=== PATIENT | female | born 1970 | race Caucasian/White ===

== ENCOUNTER 2017-12-14 14:08 | Emergency (ER) | payer BC, OTHER ==
[2017-12-14 14:36] VITALS: BP 151/79; PULSE 103; RESP 20; TEMP 98
[2017-12-14] MEDS ORDERED: ONDANSETRON 4 MG/2 ML VIAL IVP STA (15:00)
[2017-12-14] MEDS ORDERED: SODIUM CHLORIDE 0.9% 1,000 ML IV STA (15:00)
[2017-12-14] MEDS ORDERED: MORPHINE SULFATE 4 MG/ML SYRINGE IV STA (15:00)
--- NOTE | 2017-12-14 15:07 | ED ---
General Adult HPI - General Chief complaint: Back Pain/Injury Stated complaint: Left Side/Back Pain Time Seen by Provider: 12/14/17 14:49 Source: patient, RN notes reviewed Mode of arrival: wheelchair Limitations: no limitations - History of Present Illness Initial comments: Patient 47-year-old female presented to the emergency room today with a chief complaint of left sided flank pain that started approximately 45 minutes ago. Patient does admit that it feels similar to kidney stone that she's had once in the past. Patient does admit to increased nausea and pain. States it's coming in waves. Denies any other complaints or symptoms currently. Patient denies any recent fever, chills, shortness of breath, chest pain, back pain, abdominal pain, nausea or vomiting, numbness or tingling, headaches or visual changes, or any other complaints. - Related Data Home Medications Medication Instructions Recorded Confirmed Amitriptyline HCl [Elavil] 07/23/14 07/23/14 DULoxetine HCL [Cymbalta] 07/23/14 07/23/14 Levothyroxine Sodium [Synthroid] 07/23/14 07/23/14 Metoprolol Tartrate [Lopressor] 75 mg PO 07/23/14 07/23/14 Previous Rx's Medication Instructions Recorded Naproxen [Naprosyn] 500 mg PO Q12HR #20 tab 07/23/14 Orphenadrine [Norflex] 100 mg PO Q12H #10 tablet.er 07/23/14 Hydrocodone/Acetaminophen [[place] 1 each PO Q6HR PRN #12 tab 12/14/17 5-325] Ibuprofen [Motrin] 600 mg PO Q6HR PRN #40 day 12/14/17 Ondansetron Odt [Zofran ODT] 4 mg PO Q8HR PRN #20 tab 12/14/17 Tamsulosin [Flomax] 0.4 mg PO DAILY #10 cap 12/14/17 Allergies Allergy/AdvReac Type Severity Reaction Status Date / Time fluconazole [From Diflucan] Allergy Anaphylaxis Verified 12/14/17 14:36 Review of Systems ROS Statement: Those systems with pertinent positive or pertinent negative responses have been documented in the HPI. ROS Other: All systems not noted in ROS Statement are negative. Past Medical History Past Medical History: Fibromyalgia, Hypertension, Thyroid Disorder Additional Past Medical History / Comment(s): kidney stones History of Any Multi-Drug Resistant Organisms: None Reported Past Surgical History: Cholecystectomy, Hysterectomy Past Psychological History: No Psychological Hx Reported Smoking Status: Never smoker Past Alcohol Use History: None Reported Past Drug Use History: None Reported General Exam - General Exam Comments Initial Comments: General: The patient is awake and alert, in no distress, and does not appear acutely ill. Eye: There is normal conjunctiva bilaterally. No signs of icterus. Ears, nose, mouth and throat: There are moist mucous membranes and no oral lesions. Neck: The neck is supple, there is no tenderness or JVD. Cardiovascular: There is a regular rate and rhythm. No murmur, rub or gallop is appreciated. Respiratory: Lungs are clear to auscultation, respirations are non-labored, breath sounds are equal. No wheezes, stridor, rales, or rhonchi. Gastrointestinal: Soft, non-distended, non-tender abdomen without masses or organomegaly noted. There is no rebound or guarding present. No CVA tenderness. Musculoskeletal: Normal ROM, no tenderness. Sensation intact. Strength 5/5. Pulses equal bilaterally 2+. Neurological: A&O x 3. CN II-XII intact, There are no obvious motor or sensory deficits. Coordination appears grossly intact. Speech is normal. Skin: Skin is warm and dry and no rashes or lesions are noted. Psychiatric: Cooperative, appropriate mood & affect, normal judgment. Limitations: no limitations Course Vital Signs 12/14/17 14:35 Temperature 98.0 F Pulse Rate 103 H Respiratory 20 Rate Blood Pressure 151/79 O2 Sat by Pulse 98 Oximetry Medical Decision Making - Medical Decision Making Patient's EKG the abdomen and pelvis that showed 3 mm obstructing stone the left. Patient labs been reviewed urinalysis shows no sign of infection. Patient was started Flomax, ibuprofen, Bracey, and Zofran for nausea. Patient did have an opiate start talking form completed. Patient is advised follow-up with the urologist over the next 2 days. - Lab Data Result diagrams: 12/14/17 15:24 12/14/17 15:24 Lab Results 12/14/17 12/14/17 12/14/17 Range/Units 15:24 15:24 15:24 WBC 7.7 (3.8-10.6) k/uL RBC 4.47 (3.80-5.40) m/uL Hgb 13.5 (11.4-16.0) gm/dL Hct 40.1 (34.0-46.0) % MCV 89.7 (80.0-100.0) fL MCH 30.3 (25.0-35.0) pg MCHC 33.7 (31.0-37.0) g/dL RDW 13.7 (11.5-15.5) % Plt Count 317 (150-450) k/uL Neutrophils % 76 % Lymphocytes % 18 % Monocytes % 4 % Eosinophils % 1 % Basophils % 0 % Neutrophils # 5.9 (1.3-7.7) k/uL Lymphocytes # 1.4 (1.0-4.8) k/uL Monocytes # 0.3 (0-1.0) k/uL Eosinophils # 0.1 (0-0.7) k/uL Basophils # 0.0 (0-0.2) k/uL Sodium 141 (137-145) mmol/L Potassium 4.0 (3.5-5.1) mmol/L Chloride 101 (98-107) mmol/L Carbon Dioxide 28 (22-30) mmol/L Anion Gap 12 mmol/L BUN 12 (7-17) mg/dL Creatinine 0.69 (0.52-1.04) mg/dL Est GFR (CKD-EPI)AfAm >90 (>60 ml/min/1.73 sqM) Est GFR (CKD-EPI)NonAf >90 (>60 ml/min/1.73 sqM) Glucose 103 H (74-99) mg/dL Calcium 9.7 (8.4-10.2) mg/dL Total Bilirubin 0.4 (0.2-1.3) mg/dL AST 18 (14-36) U/L ALT 20 (9-52) U/L Alkaline Phosphatase 84 (38-126) U/L Total Protein 7.6 (6.3-8.2) g/dL Albumin 4.2 (3.5-5.0) g/dL Amylase 82 (30-110) U/L Lipase 42 (23-300) U/L Urine Color Urine Appearance (Clear) Urine pH (5.0-8.0) Ur Specific [place] (1.001-1.035) Urine Protein (Negative) Urine Glucose (UA) (Negative) Urine Ketones (Negative) Urine Blood (Negative) Urine Nitrite (Negative) Urine Bilirubin (Negative) Urine Urobilinogen (<2.0) mg/dL Ur Leukocyte Esterase (Negative) Urine RBC (0-5) /hpf Urine WBC (0-5) /hpf Ur Squamous Epith Cells (0-4) /hpf Urine Mucus (None) /hpf Urine HCG, Qual Not Detected (Not Detectd) 12/14/17 Range/Units 15:24 WBC (3.8-10.6) k/uL RBC (3.80-5.40) m/uL Hgb (11.4-16.0) gm/dL Hct (34.0-46.0) % MCV (80.0-100.0) fL MCH (25.0-35.0) pg MCHC (31.0-37.0) g/dL RDW (11.5-15.5) % Plt Count (150-450) k/uL Neutrophils % % Lymphocytes % % Monocytes % % Eosinophils % % Basophils % % Neutrophils # (1.3-7.7) k/uL Lymphocytes # (1.0-4.8) k/uL Monocytes # (0-1.0) k/uL Eosinophils # (0-0.7) k/uL Basophils # (0-0.2) k/uL Sodium (137-145) mmol/L Potassium (3.5-5.1) mmol/L Chloride (98-107) mmol/L Carbon Dioxide (22-30) mmol/L Anion Gap mmol/L BUN (7-17) mg/dL Creatinine (0.52-1.04) mg/dL Est GFR (CKD-EPI)AfAm (>60 ml/min/1.73 sqM) Est GFR (CKD-EPI)NonAf (>60 ml/min/1.73 sqM) Glucose (74-99) mg/dL Calcium (8.4-10.2) mg/dL Total Bilirubin (0.2-1.3) mg/dL AST (14-36) U/L ALT (9-52) U/L Alkaline Phosphatase (38-126) U/L Total Protein (6.3-8.2) g/dL Albumin (3.5-5.0) g/dL Amylase (30-110) U/L Lipase (23-300) U/L Urine Color Light Red Urine Appearance Cloudy H (Clear) Urine pH 7.0 (5.0-8.0) Ur Specific [place] 1.017 (1.001-1.035) Urine Protein 1+ H (Negative) Urine Glucose (UA) Negative (Negative) Urine Ketones Negative (Negative) Urine Blood Large H (Negative) Urine Nitrite Negative (Negative) Urine Bilirubin Negative (Negative) Urine Urobilinogen <2.0 (<2.0) mg/dL Ur Leukocyte Esterase Negative (Negative) Urine RBC >182 H (0-5) /hpf Urine WBC 2 (0-5) /hpf Ur Squamous Epith Cells 5 H (0-4) /hpf Urine Mucus Many H (None) /hpf Urine HCG, Qual (Not Detectd) Disposition Clinical Impression: Kidney stone Disposition: HOME SELF-CARE Condition: Good Instructions: Kidney Stones (ED) Additional Instructions: Please use medication as discussed. Please follow-up with urologist/family doctor in the next 2 days of symptoms have not improved. Please return to emergency room if the symptoms increase or worsen or for any other concerns. Prescriptions: Hydrocodone/Acetaminophen [[place] 5-325] 1 each PO Q6HR PRN #12 tab PRN Reason: Pain Ibuprofen [Motrin] 600 mg PO Q6HR PRN #40 day PRN Reason: Pain Ondansetron Odt [Zofran ODT] 4 mg PO Q8HR PRN #20 tab PRN Reason: Nausea Tamsulosin [Flomax] 0.4 mg PO DAILY #10 cap Is patient prescribed a controlled substance at d/c from ED?: No Referrals: Agueda Moon MD [Primary Care Provider] - 1-2 days Anthony Mullins MD [STAFF PHYSICIAN] - 1-2 days Time of Disposition: 17:16
[2017-12-14] MEDS: SODIUM CHLORIDE 0.9% 1,000 ML IV STA (15:22)
[2017-12-14 15:42] LABS: Basophils % (A) 0 %; Eosinophils # (A) 0.1 k/uL (0-0.7); Eosinophils % (A) 1 %; HCT 40.1 % (34.0-46.0); HGB 13.5 gm/dL (11.4-16.0); Lymphocytes # (A) 1.4 k/uL (1.0-4.8); Lymphocytes % (A) 18 %; MCH 30.3 pg (25.0-35.0); MCHC 33.7 g/dL (31.0-37.0); MCV 89.7 fL (80.0-100.0); Mean Platelet Volume 6.2; Monocytes # (A) 0.3 k/uL (0-1.0); Monocytes % (A) 4 %; Neutrophils # (A) 5.9 k/uL (1.3-7.7); Neutrophils % (A) 76 %; Platelet Count 317 k/uL (150-450); RBC 4.47 m/uL (3.80-5.40); RDW 13.7 % (11.5-15.5); WBC 7.7 k/uL (3.8-10.6)
[2017-12-14 15:50] LABS: ALT 20 U/L (9-52); AST 18 U/L (14-36); Albumin 4.2 g/dL (3.5-5.0); Alkaline Phosphatase 84 U/L (38-126); Amylase 82 U/L (30-110); Anion Gap 12 mmol/L; Appearance,Urine Cloudy (Clear); Bilirubin,Urine Negative (Negative); Blood Urea Nitrogen 12 mg/dL (7-17); Blood,Urine Large (Negative); Calcium 9.7 mg/dL (8.4-10.2); Carbon Dioxide 28 mmol/L (22-30); Chloride 101 mmol/L (98-107); Color,Urine Light Red; Glucose 103 mg/dL (74-99); Glucose,Urine (UA) Negative (Negative); Ketones,Urine Negative (Negative); Leukocyte Esterase,Urine Negative (Negative); Lipase 42 U/L (23-300); Mucus,Urine Many /hpf; Nitrite,Urine Negative (Negative); Protein,Urine 1+ (Negative); RBC,Urine >182 /hpf (0-5); Sodium 141 mmol/L (137-145); Specific Gravity,Urine 1.017 (1.001-1.035); Squamous Epithelial Cell,Urine 5 /hpf (0-4); Total Bilirubin 0.4 mg/dL (0.2-1.3); Total Protein 7.6 g/dL (6.3-8.2); Urobilinogen,Urine <2.0 mg/dL (<2.0); WBC,Urine 2 /hpf (0-5)
--- NOTE | 2017-12-14 16:00 | XR ---
EXAMINATION TYPE: XR KUB DATE OF EXAM: 12/14/2017 3:48 PM CLINICAL HISTORY: Left-sided abdominal pain with history of nephrolithiasis. TECHNIQUE: Single supine KUB image of the abdomen is obtained. COMPARISON: 05/15/2009. FINDINGS: Scattered gas is seen in non-distended small bowel loops. Gas and fecal material is seen in non-distended colon. There is no visceromegaly, gross evidence of pneumoperitoneum, or abnormal calc ification appreciated. The lung bases are clear and the osseous structures are intact. Cholecystectom y clips are noted within the right upper quadrant. IMPRESSION: No radiopaque calculi are appreciated. Small phleboliths are present within the pelvis un changed from 2009. Nonobstructive bowel gas pattern.
--- NOTE | 2017-12-14 16:46 | CT ---
EXAMINATION TYPE: CT abdomen pelvis wo con DATE OF EXAM: 12/14/2017 COMPARISON: None HISTORY: Left sided flank pain CT DLP: 619.9 mGycm Automated exposure control for dose reduction was used. TECHNIQUE: Helical acquisition of images was performed from the lung bases through the pelvis. FINDINGS: LUNG BASES: No significant abnormality is appreciated. LIVER/GB: Unremarkable unenhanced morphology. The bladder is surgically absent. PANCREAS: No significant abnormality is seen. SPLEEN: No splenomegaly. ADRENALS: No nodularity or thickening. KIDNEYS: There is a 3 mm obstructing left proximal ureteral calculus creating a normal left hydrouret eronephrosis. No additional renal calculi are seen within either kidney. No right-sided hydronephrosi s. No perinephric fluid collection. FREE AIR: No free air is visualized ADENOPATHY: No greater than 1 cm short axis lymph node within the abdomen or pelvis. REPRODUCTIVE ORGANS: Within the left adnexa emanating from the left ovary there is a 5.3 cm fluid att enuated ovarian cyst. OSSEOUS STRUCTURES: Slightly asymmetric sclerosis is seen of the sacroiliac joints, right greater th an left. This can be seen in arthropathies and inflammatory bowel disease. BOWEL: Appendix is air-filled and within normal limits of size. No dilated large or small bowel. IMPRESSION: 1. THERE IS A 3 MM OBSTRUCTING LEFT PROXIMAL URETERAL CALCULUS CREATING MINIMAL LEFT HYDROURETERONEPH ROSIS. 2. 5.3 CM LEFT OVARIAN OR PARAOVARIAN CYST. FOLLOW-UP PELVIC ULTRASOUND IS RECOMMENDED IN 1-3 MENSTRU AL CYCLES TO ENSURE RESOLUTION. CYST GREATER THAN 5 CM AND INCREASED RISK OF OVARIAN TORSION.
== END 2017-12-14 17:26 | disposition home or self-care (01) ==
LOC: EC 14:08
DX: N13.2 Hydronephrosis with renal and ureteral calculous obstruction (principal); I10 Essential (primary) hypertension; Z79.899 Other long term (current) drug therapy; Z88.8 Allergy status to other drugs, medicaments and biological substances; Z90.49 Acquired absence of other specified parts of digestive tract; Z90.710 Acquired absence of both cervix and uterus
CPT/HCPCS: 36415; 80053; 82150; 83690; 85025; 81001; 81025; 74018; 74176; 99284; 96374; 96375; 96361 ×2; J2270; J2405

== ENCOUNTER 2018-02-24 12:16 | Emergency (ER) | payer OTHER ==
[2018-02-24 12:42] VITALS: RESP 16
[2018-02-24] MEDS ORDERED: SODIUM CHLORIDE 0.9% 1,000 ML IV STA (13:02)
[2018-02-24] MEDS ORDERED: ONDANSETRON 4 MG/2 ML VIAL IVP STA (13:02)
[2018-02-24] MEDS ORDERED: MORPHINE SULFATE 4 MG/ML SYRINGE IV STA (13:02)
--- NOTE | 2018-02-24 13:19 | ED ---
General Adult HPI - General Chief complaint: Abdominal Pain Stated complaint: POSS KIDNEY STONE Time Seen by Provider: 02/24/18 12:51 Source: patient, RN notes reviewed Mode of arrival: ambulatory Limitations: no limitations - History of Present Illness Initial comments: Patient is a 48-year-old female presented to the emergency room today with chief complaint of left-sided flank pain. She does admit that she began having some pain a few days ago. States is now feeling some pain radiate into the left groin. She does admit that she went to urgent care was told that there was blood in her urine sample. No sign of infection. States she has been taking Flomax along with anti-inflammatories. Patient states pain was worse today so she came here to the emergency room. Patient does admit that she was seen in the emergency room a few months ago and told that she had a kidney stone on the left side. She states she does not feel that she ever passed that stone. Patient states she was doing well up until a few days ago when the pain returned. Patient does admit to symptoms of dysuria and increased frequency. Patient denies any recent fever, chills, shortness of breath, chest pain, numbness or tingling, constipation or diarrhea, headaches or visual changes, or any other complaints. - Related Data Home Medications Medication Instructions Recorded Confirmed Amitriptyline HCl [Elavil] 10 mg PO HS 02/24/18 02/24/18 DULoxetine HCL [Cymbalta] 60 mg PO DAILY@1200 02/24/18 02/24/18 Levothyroxine Sodium [Synthroid] 88 mcg PO DAILY 02/24/18 02/24/18 Metoprolol Succinate (ER) [Toprol 50 mg PO DAILY@1500 02/24/18 02/24/18 Xl] Previous Rx's Medication Instructions Recorded Hydrocodone/Acetaminophen [[place] 1 each PO Q6HR PRN #12 tab 02/24/18 5-325] Phenazopyridine [Pyridium] 100 mg PO TID 3 Days day 02/24/18 Tamsulosin [Flomax] 0.4 mg PO DAILY #10 cap 02/24/18 Allergies Allergy/AdvReac Type Severity Reaction Status Date / Time fluconazole [From Diflucan] Allergy Anaphylaxis Verified 02/24/18 13:27 Review of Systems ROS Statement: Those systems with pertinent positive or pertinent negative responses have been documented in the HPI. ROS Other: All systems not noted in ROS Statement are negative. Past Medical History Past Medical History: Fibromyalgia, Hypertension, Thyroid Disorder Additional Past Medical History / Comment(s): kidney stones History of Any Multi-Drug Resistant Organisms: None Reported Past Surgical History: Cholecystectomy, Hysterectomy Past Psychological History: No Psychological Hx Reported Smoking Status: Never smoker Past Alcohol Use History: None Reported Past Drug Use History: None Reported General Exam - General Exam Comments Initial Comments: General: The patient is awake and alert, in no distress, and does not appear acutely ill. Neck: The neck is supple, there is no tenderness or JVD. Cardiovascular: There is a regular rate and rhythm. No murmur, rub or gallop is appreciated. Respiratory: Lungs are clear to auscultation, respirations are non-labored, breath sounds are equal. No wheezes, stridor, rales, or rhonchi. Gastrointestinal: Soft on palpation. Patient does have mild tenderness in the left lower quadrant. No rebound, guarding or CVA tenderness. Musculoskeletal: Normal ROM, no tenderness. Strength 5/5. Sensation intact. Pulses equal bilaterally 2+. Neurological: A&O x 3. CN II-XII intact, There are no obvious motor or sensory deficits. Coordination appears grossly intact. Speech is normal. Skin: Skin is warm and dry and no rashes or lesions are noted. Psychiatric: Cooperative, appropriate mood & affect, normal judgment. Limitations: no limitations Course Vital Signs 02/24/18 12:40 Temperature 98.6 F Pulse Rate 98 Respiratory 16 Rate Blood Pressure 145/87 O2 Sat by Pulse 100 Oximetry Medical Decision Making - Medical Decision Making Patient's ultrasound reviewed and does show a left-sided ovarian cyst. There is no evidence for torsion. There is good Doppler flow. Patient's ultrasound of the left kidney revealing a possible 7 mm proximal ureteral stone. Patient does have hematuria. No evidence for infection. Remaining blood work is unremarkable. Patient resting comfortably at this time. Patient was advised that she should return to emergency room if any pain or symptoms increase or worsen. Patient is advised that she should follow-up with both urology and OB/ [facility]. Patient will be continued on Flomax, pain medication. Given a short prescription of [place]. An opiate start talking form was completed. Patient will also be started on Pyridium for her symptoms. - Lab Data Result diagrams: 02/24/18 13:15 18 13:15 Lab Results 02/24/1818 02/24/18 Range/Units 13:15 13:15 13:15 WBC 5.0 (3.8-10.6) k/uL RBC 4.24 (3.80-5.40) m/uL Hgb 12.5 (11.4-16.0) gm/dL Hct 38.5 (34.0-46.0) % MCV 90.8 (80.0-100.0) fL MCH 29.5 (25.0-35.0) pg MCHC 32.5 (31.0-37.0) g/dL RDW 13.1 (11.5-15.5) % Plt Count 273 (150-450) k/uL Neutrophils % 62 % Lymphocytes % 29 % Monocytes % 4 % Eosinophils % 4 % Basophils % 0 % Neutrophils # 3.1 (1.3-7.7) k/uL Lymphocytes # 1.4 (1.0-4.8) k/uL Monocytes # 0.2 (0-1.0) k/uL Eosinophils # 0.2 (0-0.7) k/uL Basophils # 0.0 (0-0.2) k/uL Sodium 141 (137-145) mmol/L Potassium 3.8 (3.5-5.1) mmol/L Chloride 102 (98-107) mmol/L Carbon Dioxide 31 H (22-30) mmol/L Anion Gap 8 mmol/L BUN 11 (7-17) mg/dL Creatinine 0.77 (0.52-1.04) mg/dL Est GFR (CKD-EPI)AfAm >90 (>60 ml/min/1.73 sqM) Est GFR (CKD-EPI)NonAf >90 (>60 ml/min/1.73 sqM) Glucose 93 (74-99) mg/dL Calcium 9.7 (8.4-10.2) mg/dL Total Bilirubin 0.4 (0.2-1.3) mg/dL AST 25 (14-36) U/L ALT 26 (9-52) U/L Alkaline Phosphatase 74 (38-126) U/L Total Protein 7.6 (6.3-8.2) g/dL Albumin 4.3 (3.5-5.0) g/dL Amylase 55 (30-110) U/L Lipase 16 L (23-300) U/L Urine Color Urine Appearance (Clear) Urine pH (5.0-8.0) Ur Specific [place] (1.001-1.035) Urine Protein (Negative) Urine Glucose (UA) (Negative) Urine Ketones (Negative) Urine Blood (Negative) Urine Nitrite (Negative) Urine Bilirubin (Negative) Urine Urobilinogen (<2.0) mg/dL Ur Leukocyte Esterase (Negative) Urine RBC (0-5) /hpf Urine WBC (0-5) /hpf Ur Squamous Epith Cells (0-4) /hpf Urine Mucus (None) /hpf Urine HCG, Qual Not Detected (Not Detectd) 02/24/18 Range/Units 13:15 WBC (3.8-10.6) k/uL RBC (3.80-5.40) m/uL Hgb (11.4-16.0) gm/dL Hct (34.0-46.0) % MCV (80.0-100.0) fL MCH (25.0-35.0) pg MCHC (31.0-37.0) g/dL RDW (11.5-15.5) % Plt Count (150-450) k/uL Neutrophils % % Lymphocytes % % Monocytes % % Eosinophils % % Basophils % % Neutrophils # (1.3-7.7) k/uL Lymphocytes # (1.0-4.8) k/uL Monocytes # (0-1.0) k/uL Eosinophils # (0-0.7) k/uL Basophils # (0-0.2) k/uL Sodium (137-145) mmol/L Potassium (3.5-5.1) mmol/L Chloride (98-107) mmol/L Carbon Dioxide (22-30) mmol/L Anion Gap mmol/L BUN (7-17) mg/dL Creatinine (0.52-1.04) mg/dL Est GFR (CKD-EPI)AfAm (>60 ml/min/1.73 sqM) Est GFR (CKD-EPI)NonAf (>60 ml/min/1.73 sqM) Glucose (74-99) mg/dL Calcium (8.4-10.2) mg/dL Total Bilirubin (0.2-1.3) mg/dL AST (14-36) U/L ALT (9-52) U/L Alkaline Phosphatase (38-126) U/L Total Protein (6.3-8.2) g/dL Albumin (3.5-5.0) g/dL Amylase (30-110) U/L Lipase (23-300) U/L Urine Color Yellow Urine Appearance Cloudy H (Clear) Urine pH 5.5 (5.0-8.0) Ur Specific [place] 1.024 (1.001-1.035) Urine Protein Trace H (Negative) Urine Glucose (UA) Negative (Negative) Urine Ketones Negative (Negative) Urine Blood Small H (Negative) Urine Nitrite Negative (Negative) Urine Bilirubin Negative (Negative) Urine Urobilinogen <2.0 (<2.0) mg/dL Ur Leukocyte Esterase Small H (Negative) Urine RBC 68 H (0-5) /hpf Urine WBC 3 (0-5) /hpf Ur Squamous Epith Cells 19 H (0-4) /hpf Urine Mucus Occasional H (None) /hpf Urine HCG, Qual (Not Detectd) Disposition Clinical Impression: Kidney stone on left side, Ovarian cyst Disposition: HOME SELF-CARE Condition: Good Instructions: Kidney Stones (ED) Additional Instructions: Please use medications as prescribed. Please follow-up with urologist/[facility] over the next 2 days. Please return here to the emergency room if any symptoms increase or worsen or for any other concerns. Prescriptions: Hydrocodone/Acetaminophen [[place] 5-325] 1 each PO Q6HR PRN #12 tab PRN Reason: Pain Phenazopyridine [Pyridium] 100 mg PO TID 3 Days day Tamsulosin [Flomax] 0.4 mg PO DAILY #10 cap Is patient prescribed a controlled substance at d/c from ED?: No Referrals: Agueda Moon MD [Primary Care Provider] - 1-2 days Curtis Ramírez MD [STAFF PHYSICIAN] - 1-2 days Time of Disposition: 15:43
[2018-02-24 13:46] LABS: Basophils % (A) 0 %; Eosinophils # (A) 0.2 k/uL (0-0.7); Eosinophils % (A) 4 %; HCT 38.5 % (34.0-46.0); HGB 12.5 gm/dL (11.4-16.0); Lymphocytes # (A) 1.4 k/uL (1.0-4.8); Lymphocytes % (A) 29 %; MCH 29.5 pg (25.0-35.0); MCHC 32.5 g/dL (31.0-37.0); MCV 90.8 fL (80.0-100.0); Mean Platelet Volume 6.3; Monocytes # (A) 0.2 k/uL (0-1.0); Monocytes % (A) 4 %; Neutrophils # (A) 3.1 k/uL (1.3-7.7); Neutrophils % (A) 62 %; Platelet Count 273 k/uL (150-450); RBC 4.24 m/uL (3.80-5.40); RDW 13.1 % (11.5-15.5)
[2018-02-24 14:00] LABS: ALT 26 U/L (9-52); AST 25 U/L (14-36); Albumin 4.3 g/dL (3.5-5.0); Alkaline Phosphatase 74 U/L (38-126); Amylase 55 U/L (30-110); Anion Gap 8 mmol/L; Blood Urea Nitrogen 11 mg/dL (7-17); Calcium 9.7 mg/dL (8.4-10.2); Carbon Dioxide 31 mmol/L (22-30); Chloride 102 mmol/L (98-107); Glucose 93 mg/dL (74-99); Lipase 16 U/L (23-300); Potassium 3.8 mmol/L (3.5-5.1); Sodium 141 mmol/L (137-145); Total Bilirubin 0.4 mg/dL (0.2-1.3); Total Protein 7.6 g/dL (6.3-8.2)
[2018-02-24 14:03] LABS: Appearance,Urine Cloudy (Clear); Bilirubin,Urine Negative (Negative); Blood,Urine Small (Negative); Color,Urine Yellow; Glucose,Urine (UA) Negative (Negative); Ketones,Urine Negative (Negative); Leukocyte Esterase,Urine Small (Negative); Mucus,Urine Occasional /hpf; Nitrite,Urine Negative (Negative); PH, Urine 5.5 (5.0-8.0); Protein,Urine Trace (Negative); RBC,Urine 68 /hpf (0-5); Specific Gravity,Urine 1.024 (1.001-1.035); Squamous Epithelial Cell,Urine 19 /hpf (0-4); Urobilinogen,Urine <2.0 mg/dL (<2.0); WBC,Urine 3 /hpf (0-5)
--- NOTE | 2018-02-24 14:48 | US ---
EXAMINATION TYPE: US kidneys/renal and bladder DATE OF EXAM: 02/24/2018 COMPARISON: None CLINICAL HISTORY: 48-year-old female Pain. Midline pressure, left side pain TECHNIQUE: Multiple sonographic images of the kidneys and bladder are obtained. FINDINGS: EXAM MEASUREMENTS: Right Kidney: 10.8 x 4.8 x 4.9 cm Left Kidney: 11.9 x 5.2 x 6.1 cm No hydronephrosis on either side. Bladder: distended. Posterior to bladder in left ureter region, echogenic focus with twinkling artifa ct seen - 0.7 cm Bilateral Jets seen IMPRESSION: Suggestion of a 7 mm calcification at the insertion of the left ureter, possible nonobstructing calcu panfilo at the left ureteral orifice. No hydronephrosis.
--- NOTE | 2018-02-24 14:52 | US ---
EXAMINATION TYPE: US transvaginal plus Dopplers DATE OF EXAM: 02/24/2018 COMPARISON: None CLINICAL HISTORY: 48-year-old female pain. Partial hysterectomy- still has both ovaries. TECHNIQUE: Transvaginal (TV). Color Doppler and spectral waveform analysis of the ovarian arteries a nd veins. Date of LMP: Partial hysterectomy FINDINGS: Uterus surgically absent. Right Ovary: 2.3 x 1.2 x 1.2 cm. A paraovarian cyst measures 1.8 x 1.2 x 1.1 cm. Left Ovary: 5.2 x 4.3 x 5.1 cm. Enlarged secondary to a cyst measuring 5.1 x 4.0 x 3.4 cm. No suspi cious internal complexity seen. Spectral, color and waveform doppler imaging shows good arterial and venous flow within the ovaries ; there is no evidence for ovarian torsion. Bilateral Adnexa: wnl Posterior cul-de-sac: no free fluid IMPRESSION: 1. Status post hysterectomy. No pelvic free fluid. 2. Left ovary is enlarged secondary to a 5.1 cm simple cyst. Follow-up in 6-8 weeks to assess involut ion. 3. No sonographic evidence for ovarian torsion.
--- NOTE | 2018-02-24 14:55 | XR ---
EXAMINATION TYPE: XR KUB DATE OF EXAM: 02/24/2018 CLINICAL DATA: 48-year-old female with abdominal pain, [facility] COMPARISON: 12/14/2012 FINDINGS: Lung bases are clear. Cholecystectomy clips. No evidence for free intraperitoneal air. No dilated small bowel or air-fluid levels. Scattered air is seen throughout the colon extending dist ally into the rectum. No significant stool burden. Pelvic phleboliths appear unchanged. IMPRESSION: 1. No evidence for free air or bowel obstruction. 2. Phleboliths in the pelvis are unchanged from 12/14/2017
[2018-02-24 16:09] VITALS: BP 150/85; PULSE 88; TEMP 98
== END 2018-02-24 16:15 | disposition home or self-care (01) ==
LOC: EC 12:16
DX: N20.0 Calculus of kidney (principal); N83.202 Unspecified ovarian cyst, left side; M79.7 Fibromyalgia; I10 Essential (primary) hypertension; E07.9 Disorder of thyroid, unspecified; Z87.442 Personal history of urinary calculi; Z90.49 Acquired absence of other specified parts of digestive tract; Z90.710 Acquired absence of both cervix and uterus; Z79.899 Other long term (current) drug therapy; Z88.1 Allergy status to other antibiotic agents
CPT/HCPCS: 99284; 96374; 96375; 36415; 80053; 82150; 83690; 85025; 81001; 81025; 74018; 93975; 76830; 76770; 96361; J2270; J2405

== ENCOUNTER 2023-01-07 13:13 | Emergency (ER) | payer OTHER ==
[2023-01-07 13:38] VITALS: PULSE 81; TEMP 99.2
--- NOTE | 2023-01-07 13:44 | ED ---
Chest Pain HPI - General Source: patient, RN notes reviewed Mode of arrival: wheelchair Limitations: no limitations <Thee Olivera - Last Filed: 01/07/23 13:42> <Nataliia Hodgson - Last Filed: 01/07/23 19:09> <Fam Zamora - Last Filed: 01/07/23 19:58> - General Chief Complaint: Chest Pain Stated Complaint: pressure chest high bp Time Seen by Provider: 01/07/23 13:42 - History of Present Illness Initial Comments: 53-year-old female presents emergency Department chief complaint chest pressure. Patient states she's been having worsening body pain which she states she has fibromyalgia. She was started on Lyrica 5 weeks ago. Patient states she had her dentist today in her blood pressure was elevated. She states that she has been having increasing muscle aches, chest pressure, joint pain. She states that she had an issue with a statin that seemed to flare everything up. Patient denies any prior cardiac disease. (Thee Olivera) The patient is a 53-year-old female with history of hypertension, hyperlipidemia and fibromyalgia presents emergency room with multiple complaints. Patient complains of persistent chest pressure since Saturday. She states it does not really change with ambulation, breathing movement or help eating. She states that her blood pressure was 180/110 at the dentist today. Patient states she has not felt well over the last several weeks. She has had intermittent flushing and pain from the lower back down to the legs. She was recently started on there, and believes that the Lyrica has made her feel worse. She has had an intermittent cough but denies any hemoptysis or known fevers. She denies nausea vomiting or diarrhea. Patient denies any history of IV drug use. She denies any saddle anesthesia or loss of bowel or bladder control. Ice any urinary frequency, hematuria or discolored urine.. (Nataliia Hodgson) - Related Data Home Medications Medication Instructions Recorded Confirmed Amitriptyline HCl [Elavil] 10 mg PO HS 02/24/18 01/07/23 DULoxetine HCL [Cymbalta] 60 mg PO DAILY 02/24/18 01/07/23 Metoprolol Succinate (ER) [Toprol 50 mg PO DAILY 02/24/18 01/07/23 Xl] Levothyroxine Sodium [Synthroid] 100 mcg PO DAILY 01/07/23 01/07/23 Meloxicam [Mobic] 15 mg PO DAILY 01/07/23 01/07/23 Pregabalin 100 mg PO BID 01/07/23 01/07/23 Rosuvastatin [Crestor] 10 mg PO HS 01/07/23 01/07/23 Allergies Allergy/AdvReac Type Severity Reaction Status Date / Time fluconazole [From Diflucan] Allergy Anaphylaxis Verified 01/07/23 17:53 Review of Systems ROS Other: All systems not noted in ROS Statement are negative. <Thee Olivera - Last Filed: 01/07/23 13:42> ROS Other: All systems not noted in ROS Statement are negative. <Nataliia Hodgson - Last Filed: 01/07/23 19:09> ROS Other: All systems not noted in ROS Statement are negative. <Fam Zamora - Last Filed: 01/07/23 19:58> ROS Statement: Those systems with pertinent positive or pertinent negative responses have been documented in the HPI. EKG Findings - EKG Comments: EKG Findings:: EKG shows sinus rhythm at a rate of 60 bpm, no acute ST segment elevation, normal QT Intervals at 382 ms <Nataliia Hodgson - Last Filed: 01/07/23 19:09> Past Medical History Past Medical History: Fibromyalgia, Hypertension, Thyroid Disorder Additional Past Medical History / Comment(s): kidney stones, neuropathy History of Any Multi-Drug Resistant Organisms: None Reported Past Surgical History: Cholecystectomy, Hysterectomy Past Psychological History: No Psychological Hx Reported Smoking Status: Never smoker Past Alcohol Use History: None Reported Past Drug Use History: None Reported <Thee Olivera - Last Filed: 01/07/23 13:42> General Exam Limitations: no limitations General appearance: alert, in no apparent distress Head exam: Present: atraumatic, normocephalic, normal inspection <Thee Olivera - Last Filed: 01/07/23 13:42> Eye exam: Present: normal appearance ENT exam: Present: normal exam Neck exam: Present: normal inspection Respiratory exam: Present: normal lung sounds bilaterally Cardiovascular Exam: Present: regular rate, normal rhythm GI/Abdominal exam: Present: soft Extremities exam: Present: full ROM Back exam: Present: full ROM Neurological exam: Present: alert, oriented X3, CN II-XII intact Psychiatric exam: Present: normal affect, normal mood Skin exam: Present: warm, dry <Nataliia Hodgson - Last Filed: 01/07/23 19:09> - General Exam Comments Initial Comments: Visual Physical Exam Vital signs reviewed General: Well-appearing, nontoxic, no acute distress. Head: Normocephalic, atraumatic Eyes: PERRLA, EOMI ENT: Airway patent Chest: Nonlabored breathing Skin: No visual rash, normal skin tone Neuro: Alert and oriented 3 Musculoskeletal: No gross abnormalities (Thee Olivera) Course <Nataliia Hodgson - Last Filed: 01/07/23 19:09> Vital Signs 01/07/23 01/07/23 13:20 19:35 Temperature 99.2 F Pulse Rate 81 Respiratory 18 16 Rate Blood Pressure 176/90 Blood Pressure 152/100 [Left Arm] O2 Sat by Pulse 100 97 Oximetry - Reevaluation(s) Reevaluation #1: 01/07/23 19:10 The patient's well appearing in the emergency room. Her blood pressure improved while in the ER. She was given Toradol for pain with improvement. Patient will have a repeat troponin I she does not want to stay for cardiac evaluation and she has a low risk. If repeat troponin is negative she'll be discharged home. Patient care will be transferred to Dr. Zamora for follow-up and final disposition. Patient is stable at this time. (Nataliia Hodgson) Chest Pain MDM <Thee Olivera - Last Filed: 01/07/23 13:42> <Nataliia Hodgson - Last Filed: 01/07/23 19:09> <Fam Zamora - Last Filed: 01/07/23 19:58> - MDM I performed a quick note portion of this chart signed Thee Olivera PA-C (Thee Olivera) Was pt. sent in by a medical professional or institution ([facility]elan, MANAGER REPORTING, urgent care, hospital, or prison...) When possible be specific @ -[No] Did you speak to anyone other than the patient for history (EMS, parent, family, police, friend...)? What history was obtained from this source @ -[No] Did you review nursing and triage notes (agree or disagree)? Why? @ -[I reviewed and agree with nursing and triage notes] Were old charts reviewed (outside hosp., previous admission, EMS record, old EKG, old radiological studies, urgent care reports/EKG's, prison records)? Report findings @ -[No old charts were reviewed] Differential Diagnosis (chest pain, altered mental status, abdominal pain women, abdominal pain men, vaginal bleeding, weakness, fever, dyspnea, syncope, headache, dizziness, GI bleed, back pain, seizure, CVA, palpatations, mental health, musculoskeletal)? @ -Cusp enteritis, chest wall pain, [place], angina, chest pain, viral syndrome, urinary tract infection, Covid EKG interpreted by me (3pts min.). @ -EKG shows sinus rhythm at a rate of [address] segment elevation or T-wave changes X-rays interpreted by me (1pt min.). @ -Chest x-ray is negative for pneumonia, pneumothorax mass or other acute changes. CT interpreted by me (1pt min.). @ -[None done] U/S interpreted by me (1pt. min.). @ -[None done] What testing was considered but not performed or refused? (CT, X-rays, U/S, labs)? Why? @ -[None] What meds were considered but not given or refused? Why? @ -[None] Did you discuss the management of the patient with other professionals (professionals i.e. DrKathy, PA, MANAGER REPORTING, lab, RT, psych nurse, forensic social worker, exhibit designer, teacher, truant officer, case management coordinator)? Give summary @ -I discussed patient's symptoms were Risk factors and management including the delta troponin with attending ED physician Dr. Zamora today. he will take over care of the patient for follow up of the delta troponin and final disposition. Was smoking cessation discussed for >3mins.? @ -[No] Was critical care preformed (if so, how long)? @ -[No] Were there social determinants of health that impacted care today? How? (Homelessness, low income, unemployed, alcoholism, drug addiction, transportation, low edu. Level, literacy, decrease access to med. care, half-way, rehab)? @ -[No] Was there de-escalation of care discussed even if they declined (Discuss DNR or withdrawal of care, Hospice)? DNR status @ -[No] What co-morbidities impacted this encounter? (DM, HTN, Smoking, COPD, CAD, Cancer, CVA, ARF, Chemo, Hep., AIDS, mental health diagnosis, sleep apnea, morbid obesity)? @ -[HTN, HLD] Was patient admitted / discharged? Hospital course, mention meds given and route, prescriptions, significant lab abnormalities, going to OR and other pertinent info. @ - Patient will have repeat troponin and if negative she will be discharged home for follow-up evaluation with the neurologist for the chronic pain and neuropathy. Will be given a referral to heat treat worker. She understands she is to return if she develops any worsening pain or new concerning symptoms. Patient had been offered admission for cardiac evaluation however she wishes to follow up as an outpatient as needed. Undiagnosed new problem with uncertain prognosis? @ -[No] Drug Therapy requiring intensive monitoring for toxicity (Heparin, Nitro, Insulin, Cardizem)? @ -[No] Were any procedures done? @ -[No] Diagnosis/symptom? @ -Hypertension, chest pain, acute on chronic pain, neuropathy, chest wall pain Acute, or Chronic, or Acute on Chronic? @ -Acute Uncomplicated (without systemic symptoms) or Complicated (systemic symptoms)? @ -[default] Side effects of treatment? @ -[No] Exacerbation, Progression, or Severe Exacerbation? @ -[No] Poses a threat to life or bodily function? How? (Chest pain, [place], [place], pneumonia, PE, COPD, DKA, ARF, appy, cholecystitis, CVA, Diverticulitis, Homicidal, Suicidal, threat to staff... and all critical care pts) @ -[Yes however the patient does not want to stay in the hospital for cardiac evaluation. She will follow up as an outpatient.] (Nataliia Hodgson) Patient is signed out to me by physician assistant professor of art. Briefly, patient is 53-year-old female presents emergency department for a tubal chest pain with typical features. She does not have very much for risk factors cardiac-rai. Plan cyanosis follow up with second troponin. Second troponin ordered found unremarkable. Patient told that she should follow-up with the primary care doctor for outpatient stress test. Return precautions discussed. (Fam Zamora) Disposition <Dedoe,Thee M - Last Filed: 01/07/23 13:42> <Nataliia Hodgson - Last Filed: 01/07/23 19:09> Is patient prescribed a controlled substance at d/c from ED?: No <Fam Zamora - Last Filed: 01/07/23 19:58> Clinical Impression: Chest wall pain, Chest pain, Neuropathy, Chronic pain Disposition: HOME SELF-CARE Instructions (If sedation given, give patient instructions): Chest Pain (ED) Referrals: Agueda Moon MD [Primary Care Provider] - 1-2 days
[2023-01-07 13:50] LABS: Basophils % (A) 0 %; Eosinophils # (A) 0.2 k/uL (0-0.7); Eosinophils % (A) 3 %; HCT 39.2 % (34.0-46.0); HGB 13.5 gm/dL (11.4-16.0); Lymphocytes # (A) 1.8 k/uL (1.0-4.8); Lymphocytes % (A) 32 %; MCH 31.3 pg (25.0-35.0); MCHC 34.4 g/dL (31.0-37.0); MCV 90.8 fL (80.0-100.0); Monocytes # (A) 0.2 k/uL (0-1.0); Monocytes % (A) 4 %; Neutrophils # (A) 3.4 k/uL (1.3-7.7); Neutrophils % (A) 59 %; Platelet Count 288 k/uL (150-450); RBC 4.32 m/uL (3.80-5.40); RDW 13.1 % (11.5-15.5); WBC 5.7 k/uL (3.8-10.6)
[2023-01-07 13:59] LABS: INR 0.9 (<1.2); Partial Thromboplastin Time 23.7 sec (22.0-30.0); Prothrombin Time 10.5 sec (10.0-12.5)
[2023-01-07 14:00] LABS: ALT 26 U/L (4-34); AST 30 U/L (14-36); African American GFR (CKD) >90 (>60 ml/min/1.73 sqM); Albumin 4.4 g/dL (3.5-5.0); Alkaline Phosphatase 107 U/L (38-126); Anion Gap 10 mmol/L; Blood Urea Nitrogen 15 mg/dL (7-17); Calcium 9.7 mg/dL (8.4-10.2); Carbon Dioxide 27 mmol/L (22-30); Chloride 102 mmol/L (98-107); Glucose 88 mg/dL (74-99); Magnesium 1.9 mg/dL (1.6-2.3); Non-African American GFR(CKD) >90 (>60 ml/min/1.73 sqM); Potassium 4.6 mmol/L (3.5-5.1); Sodium 139 mmol/L (137-145); Total Bilirubin 0.5 mg/dL (0.2-1.3); Total Protein 7.6 g/dL (6.3-8.2)
--- NOTE | 2023-01-07 15:24 | XR ---
EXAMINATION TYPE: XR chest 2V DATE OF EXAM: 01/07/2023 3:21 PM COMPARISON: Chest radiographs from 07/23/2014 TECHNIQUE: XR chest 2V Frontal and lateral views of the chest. CLINICAL INDICATION:Female, 53 years old with history of Chest Pain; FINDINGS: Lungs/Pleura: There is no evidence of pleural effusion, focal consolidation, or pneumothorax. Pulmonary vascularity: Unremarkable. Heart/mediastinum: Cardiomediastinal silhouette is unremarkable. Musculoskeletal: No acute osseous pathology. Other findings: Cholecystectomy clips identified in the upper abdomen. IMPRESSION: No acute cardiopulmonary disease/process.
[2023-01-07 15:31] LABS: C Reactive Protein 1.2 mg/dL (<1.0)
[2023-01-07 17:24] LABS: Appearance,Urine Clear (Clear); Bilirubin,Urine Negative (Negative); Blood,Urine Negative (Negative); Color,Urine Yellow; Glucose,Urine (UA) Negative (Negative); Ketones,Urine Negative (Negative); Leukocyte Esterase,Urine Negative (Negative); Nitrite,Urine Negative (Negative); Protein,Urine Negative (Negative); Urobilinogen,Urine <2.0 mg/dL (<2.0)
[2023-01-07] MEDS ORDERED: KETOROLAC 15 MG/ML 1 ML VIAL IVP STA (17:25)
[2023-01-07] MEDS ORDERED: SODIUM CHLORIDE 0.9% 1,000 ML IV STA (17:26)
[2023-01-07 19:45] VITALS: BP 152/100; RESP 16
== END 2023-01-07 19:00 | disposition home or self-care (01) ==
LOC: EC 13:13
DX: G89.29 Other chronic pain (principal); R07.89 Other chest pain; G62.9 Polyneuropathy, unspecified; I10 Essential (primary) hypertension; E78.5 Hyperlipidemia, unspecified; Z79.899 Other long term (current) drug therapy; Z20.822 Contact with and (suspected) exposure to COVID-19; Z88.8 Allergy status to other drugs, medicaments and biological substances
CPT/HCPCS: 36415; 93005; 80053; 82550; 83735; 84484; 85025; 85610; 85730; 86140; 81003; 87636; 71046; 96374; 96361; 99285; J1885

== ENCOUNTER → 2023-04-30 | Outpatient (CLI) | payer OTHER ==
[~2023-04-30] MED LIST: REGADENOSON 0.4 MG/5 ML SYRINGE IV PRN
--- NOTE | 2023-04-30 12:57 | CA ---
Lexiscan Nuclear Stress Test Report Name: Nidia Pinto Exam Date: 04/30/2023 11:33 Exam Location: [place] [facility] Ht (in): 66 Wt (lb): 193 BSA: 1.97 Ordering Phys: Agueda oMon MD Referring Phys: Agueda Moon MD Technologist: LEVAR Age: 53 Gender: F : 1970 Procedure CPT: Indications: R07.89 other chest pain ICD-10 Codes: Patient History: Chest and arm pain Medications: Meds past 24 hrs: Pretest Chest Pain: STRESS TEST Lexiscan Protocol Exercise Duration (min:sec): 01:[address] Depressions (mm): Angina Score: Stacy Score: Resting HR (bpm): 77 Peak HR (bpm): 113 Resting BP (mmHg): 138 / 81 Peak BP (mmHg): 156 / 88 MPHR: 166 Target HR: 141 % MPHR: 68 METS: 1.0 Total Dose: Peak Dose: Atropine: Double Product: 18618 BP Response: Stress Termination: Infusion complete Stress Symptoms: No chest pain or symptoms Stress Summary: ECG ANALYSIS Resting ECG: Sinus rhythm. Normal conduction. No arrhythmias. Nonspecific ST-T abnormality. Stress ECG: No ECG changes from baseline with Lexiscan infusion. CONCLUSIONS No ECG evidence of ischemia with Lexiscan infusion. Nuclear test results to follow. Dr. Delilah Ballard MD (Electronically Signed) Final Date: 30 April 2023 12:56
--- NOTE | 2023-05-01 08:35 | NM ---
EXAMINATION TYPE: NM stress lexiscan cardiolite DATE OF EXAM: 04/30/2023 COMPARISON: None CLINICAL INDICATION: Female, 53 years old with history of R07.89 OTHER CHEST PAIN; TECHNIQUE: After the intravenous administration of 10.3 mCi Tc 99m Sestamibi - Cardiolite resting SP ECT images acquired 68 minutes post injection. The patient received 0.4mg Lexiscan, 26.3 mCi Tc 99m Sestamibi - Stress images obtained [address] injection FINDINGS: Review of stress and rest SPECT images demonstrates no distinct perfusion abnormality. Gated analysi s shows normal wall motion with an estimated left ventricular ejection fraction of 62 %. TID is calc ulated at 1.07. IMPRESSION: No scintigraphic evidence for reversible ischemia.
== END | disposition home or self-care (01) ==
LOC: RADNMMAIN 07:48
PROVIDERS: ATTEND Family Medicine
DX: R07.89 Other chest pain (principal); M79.603 Pain in arm, unspecified
CPT/HCPCS: 93017; 78452; A9500; J2785